=== PATIENT | female | born 1965 | race Two or more races ===

== ENCOUNTER 2018-05-14 12:08 | Emergency (ER) | payer MEDICAID ==
[~2018-05-14] VITALS: Ht 154.9 cm; Wt 90.7 kg
[2018-05-14] MEDS ORDERED: ASPirin 81 mg TAB PO ONE (13:15)
[2018-05-14 14:02] LABS: Urine WBC None Seen /hpf (0 - 5)
[2018-05-14 14:17] LABS: Urine Bacteria NONE SEEN /hpf (None Seen); Urine Blood Negative /uL (Negative); Urine Specific Gravity 1.005 (1.001-1.035)
[2018-05-14 14:48] LABS: Basophils # (auto) 0 uL; Basophils % (auto) 0.5 % (0.0-2.0); Eosinophils # (auto) 0.1 uL; Eosinophils % (auto) 1.3 % (0.0-7.0); Hematocrit 43.1 % (36.0-46.0); Hemoglobin 14.6 g/dL (12.2-16.2); Lymphocytes # (auto) 1.3 uL; Lymphocytes % (auto) 30.2 % (10.0-50.0); Mean Corpuscular Hemoglobin 30.8 pg (28.0-32.0); Mean Corpuscular Hgb Conc. 33.8 g/dL (32.0-36.0); Monocytes # (auto) 0.4 uL; Neutrophils # (auto) 2.6 uL; Nucleated Red Blood Cells % 0.2 %; Platelet Count (auto) 201 10^3/uL (140-450); Red Blood Cells 4.73 10^6/uL (4.0-5.20); Red Cell Distribution Width 13.3 % (11.8-14.3); White Blood Cell 4.5 10^3/uL (4.4-10.8)
[2018-05-14 15:04] LABS: Alanine Aminotransferase 26 U/L (13-56); Albumin 3.7 g/dL (3.4-5.0); Anion Gap 7 (5-15); Blood Urea Nitrogen 8 mg/dL (7-18); Calcium 8.6 mg/dL (8.5-10.1); Carbon Dioxide 25 mmol/L (21-32); Chloride 108 mmol/L (98-107); Glucose 86 mg/dL (74-106); INR 0.94 (0.9-1.15); Partial Thromboplastin Time 26.7 sec (23.78-33.04); Potassium 4.2 mmol/L (3.5-5.1); Prothrombin Time 10.1 sec (9.27-12.13); Sodium 140 mmol/L (136-145)
[2018-05-14 15:09] LABS: Alkaline Phosphatase 100 U/L (45-117); Aspartate Aminotransferase 33 U/L (15-37); BUN/Creatinine Ratio 15.4; Bilirubin, Total 0.4 mg/dL (0.2-1.0); GFR African American 159 mL/min; GFR Non-African American 131 mL/min; Total Protein 7.3 g/dL (6.4-8.2)
[2018-05-14 15:54] VITALS: BP 154/86
== END 2018-05-14 15:50 | disposition home or self-care (01) ==
LOC: ER 12:08
DX: R07.89 Other chest pain (principal); F41.9 Anxiety disorder, unspecified
CPT/HCPCS: 36415; 70450; 80053; 81001; 83880; 84484; 85025; 85610; 85730; 93005

== ENCOUNTER 2024-10-10 11:10 | Emergency (ER) | payer OTHER, MEDICAID ==
[~2024-10-10] VITALS: Ht 165.1 cm; Wt 72.7 kg
--- NOTE | 2024-10-10 11:26 | ECG ---
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
--- NOTE | 2024-10-10 11:37 | ED.PDOC ---
HPI Comments 59y F who presents to the ED via EMS for chief complaint of chest pain radiating to the neck. Per EMS, pt was at home and states since earlier this AM, pt has been having R sided neck pain with associated chest pain and associated shortness of breath and headache. Pt states the symptoms have been intermittent but states they have exacerbated today and pt called EMS. EMS arrived on scene and noted stable vitals and pt was brought to the ED. Pt in the ED, rates the pain 9/10, pulsating in nature, with no associated exacerbating or relieving factors. Pt denies back pain but states she is having pain in torso. Pt states she had seen PCP for appt and has network intelligence analyst appt sent up to follow up her concerns for possible AAA. Pt otherwise denies any other symptoms at this time. Chief Complaint: Chest Pain Time Seen by MD: 11:32 Reviewed Notes: Manager Of Applications Development Notes, Medications, Allergies Allergies: Coded Allergies: NO KNOWN ALLERGIES (Unverified , 05/14/18) Information Source: Patient, Emergency Med Personnel Mode of Arrival: EMS Brought in by: EMS Severity: Moderate Timing: Days Duration: Since onset Prehospital treatment: None Location: Chest (R) Radiation: Neck Quality: Other (pulsating) Onset: At Rest Cardiac Risk Factors: Hyperlipidemia, HTN PE Risk Factors: None History of: Similar pain in past Associated Signs and Symptoms: SOB, None (headache) Past Medical History PAST MEDICAL HISTORY: High Lipids, HTN Surgical History: , Hysterectomy HEALTH PROFESSIONAL History: No Pertinent HEALTH PROFESSIONAL History Family History Family History: Family hx of heart darrion Social History Smoker: Non-Smoker Alcohol: Denies ETOH Use Drugs: Denies Drug Use Lives In: Home Constitutional: denies: chills, diaphoresis, fatigue, fever, malaise, sweats, weakness, others EENTM: denies: blurred vision, double vision, ear bleeding, ear discharge, ear drainage, ear pain, ear ringing, eye pain, eye redness, hearing loss, mouth pain, mouth swelling, nasal discharge, nose bleeding, nose congestion, nose pain, photophobia, tearing, throat pain, throat swelling, voice changes, others Respiratory: denies: cough, hemoptysis, orthopnea, SOB at rest, shortness of breath, SOB with excertion, stridor, wheezing, others Cardiovascular: reports: chest pain; denies: dizzy spells, diaphoresis, Dyspnea on exertion, edema, irregular heart beat, left arm pain, lightheadedness, palpitations, PND, syncope, others Gastrointestinal: denies: abdomen distended, abdominal pain, blood streaked bowels, constipated, diarrhea, dysphagia, difficulty swallowing, hematemesis, melena, nausea, poor appetite, poor fluid intake, rectal bleeding, rectal pain, vomiting, others Genitourinary: denies: abnormal vagina bleeding, burning, dyspareunia, dysuria, flank pain, frequency, hematuria, incontinence, pain, , vagina discharge, urgency, others Neurological: denies: dizziness, fainting, headache, left sided numbness, left sided weakness, numbness, paresthesia, pre-existing deficit, right sided numbness, right sided weakness, seizure, speech problems, tingling, tremors, weakness, others Musculoskeletal: reports: neck pain; denies: back pain, gout, joint pain, joint swelling, muscle pain, muscle stiffness, others Integumetry: denies: bruises, change in color, change in hair/nails, dryness, laceration, lesions, lumps, rash, wounds, others Allergic/Immunocompromised: denies: Difficulty Healing, Frequent Infections, Hives, Itching, others Hematologic/Lymphatic: denies: anemia, blood clots, easy bleeding, easy bruising, swollen glands, others Endocrine: denies: excessive hunger, excessive sweating, excessive thirst, excessive urination, flushing, intolerance to cold, intolerance to heat, unexplained weight gain, unexplained weight loss, others Psychiatric: denies: anxiety, bipolar disorder, depression, hopeless, panic disorder, schizophrenia, sleepless, suicidal, others All Other Systems: Reviewed and Negative Physical Exam General Appearance: Mild Distress HEENT: Normal ENT Inspection, Pharynx Normal, TMs Normal Neck: Full Range of Motion, Non-Tender, Normal, Normal Inspection Respiratory: Chest Non-Tender, Lungs Clear, No Accessory Muscle Use, No Respiratory Distress, Normal Breath Sounds Cardiovascular: No Edema, No JVD, No Murmur, No Gallop, Normal Peripheral Pulses, Regular Rate/Rhythm Breast Exam: Deferred Gastrointestinal: No Organomegaly, Non Tender, No Pulsatile Mass, Normal Bowel Sounds, Soft Genitalia: Deferred Pelvic: Deferred Rectal: Deferred Extremities: No calf tenderness, Normal capillary refill, Normal inspection, Normal range of motion, Non-tender, No pedal edema Musculoskeletal : Apperance: Normal Neurologic: Alert, sheet rock taper helper II-XII nml as Tested, No Motor Deficits, Normal Affect, Normal Mood, No Sensory Deficits Cerebellar Function: Normal Reflexes: Normal Skin: Dry, Normal Color, Warm Lymphatic: No Adenopathy EKG EKG : Pulse Rate (adult): 65 [place]: Normal Cardiac Rhythm: NSR Block: None Hypertrophy: LAE, LVH ST: Normal Was a procedure done? Was a procedure done?: No CP Differential Dx Differential Diagnosis: Angina, Anxiety / Panic Attack, Atrial Dysrhythmia, Electrolyte Disorder, Heart Failure, VT, Pulmonary Embolus, PVC's Differential Diagnosis: HTN Essential, HTN Accelerated X-Ray, Labs, Meds, VS Vital Signs Date Time Temp Pulse Resp B/P (MAP) Pulse Ox O2 Delivery O2 Flow Rate FiO2 10/10/24 14:49 98.7 63 16 151/86 (107) 98 98.7 10/10/24 12:26 67 10/10/24 11:36 65 10/10/24 11:24 65 Lab Test 10/10/24 12:54 10/10/24 11:39 Range/Units Troponin I High Sensitivity 15 4 </=34 ng/L White Blood Count 5.8 4.4-10.8 10^3/uL Red Blood Count 4.62 4.0-5.20 10^6/uL Hemoglobin 14.4 12.2-16.2 g/dL Hematocrit 42.5 36.0-46.0 % Mean Corpuscular Volume 92.1 80.0-100.0 fL Mean Corpuscular Hemoglobin 31.3 28.0-32.0 pg Mean Corpuscular Hemoglobin Concent 33.9 32.0-36.0 g/dL Red Cell Distribution Width 12.9 11.8-14.3 % Platelet Count 185 140-450 10^3/uL Mean Platelet Volume 9.3 6.9-10.8 fL Neutrophils (%) (Auto) 71.9 37.0-80.0 % Lymphocytes (%) (Auto) 20.3 10.0-50.0 % Monocytes (%) (Auto) 6.2 0.0-12.0 % Eosinophils (%) (Auto) 1.4 0.0-7.0 % Basophils (%) (Auto) 0.2 0.0-2.0 % Neutrophils # (Auto) 4.2 1.6-8.6 10 ^3/uL Lymphocytes # (Auto) 1.2 0.4-5.4 10 ^3/uL Monocytes # (Auto) 0.4 0-1.3 10 ^3/uL Eosinophils # (Auto) 0.1 0-0.8 10 ^3/uL Basophils # (Auto) 0 0-0.2 10 ^3/uL Nucleated Red Blood Cells 0.1 % D-Dimer, Quantitative 0.54 H 0.0-0.49 mg/L FEU Sodium Level 145 136-145 mmol/L Potassium Level 4.1 3.5-5.1 mmol/L Chloride Level 109 H 98-107 mmol/L Carbon Dioxide Level 28 20-31 mmol/L Anion Gap 8 5-15 Blood Urea Nitrogen 8 L 9-23 mg/dL Creatinine 0.78 0.550-1.02 mg/dL Glomerular Filtration Rate Calc 87 >90 mL/min BUN/Creatinine Ratio 10.3 10.0-20.0 Serum Glucose 100 74-106 mg/dL Calcium Level 9.5 8.7-10.4 mg/dL B-Type Natriuretic Peptide 85.05 0-100 pg/mL XY CHEST TWO VIEWS ROUTINE IMPRESSION: No acute cardiopulmonary disease. IV Hep-Lock was established The troponin level is negative. The D-dimer is 0.54. We do not feel that this patient has a PE The patient's chemistry panel is within normal limits The CBC is within normal limits At this time, the patient will be transferred to [place]. We did speak with the [place] physician and the patient is also being worked up for some abnormality in her aorta. The patient is not complaining of any chest pain at this time so the patient is being transferred to their facility. The authorization number is [id number] At this time, the patient is being transferred We discussed the findings with the patient Images Reviewed?: Images reviewed and evaluated by me Time of 1ST Reevaluation: 14:54 Reevaluation 1ST: Unchanged Patient Education/Counseling: Diagnosis, Treatment, Prognosis Family Education/Counseling: No Family Present SEPSIS Sepsis Screen Physician Orders Troponin-I Hs (10/10/24 14:21) Electrocardigram (10/10/24 14:21) Heplock Iv (10/10/24 11:25) Extras Casting Director (10/10/24 11:25) Blood Pressure (10/10/24 11:25) Pulse Oximetry (10/10/24 11:25) Chest Two Views Routine (10/10/24 11:25) Imaging Transfer Request (10/10/24 14:20) Vital Signs Date Time Temp Pulse Resp B/P (MAP) Pulse Ox O2 Delivery O2 Flow Rate FiO2 10/10/24 14:49 98.7 63 16 151/86 (107) 98 98.7 10/10/24 12:26 67 10/10/24 11:36 65 10/10/24 11:24 65 Laboratory Tests Test 10/10/24 11:39 White Blood Count 5.8 10^3/uL (4.4-10.8) Departure 1 Departure Time of Disposition: 14:54 Impression: Primary Impression: Acute chest pain Disposition: 51 HOSPICE/MEDICAL FACILITY Condition: Fair Critical Care Note Critical Care Time?: Yes (35 min-critical care time only) Stability Stability form required: Yes Stable for transfer: Intended for transfer (Health plan request transfer), To designated facility Heart Score Heart Score: Heart Score Response (Comments) Value History Slightly Suspicious 0 EKG Normal 0 Age 45-64 1 Risk Factors 1 or 2 risk factors 1 Troponin Normal limit 0 Total 2 I personally scribed for MAXIMUS RODRIGUEZ MD ([email or web address]) on 10/10/24 at 11:36. Electronically submitted by Michele Marte ([email or web address]). I personally scribed for MAXIMUS RODRIGUEZ MD ([email or web address]) on 10/10/24 at 12:15. Electronically submitted by Michele Marte ([email or web address]). MAXIMUS RODRIGUEZ MD Oct 10, 2024 11:36
--- NOTE | 2024-10-10 12:08 | DVH ---
XY CHEST TWO VIEWS ROUTINE CLINICAL HISTORY: CP COMPARISON: None TECHNIQUE: Frontal and lateral view of the chest was obtained FINDINGS: Lines and Tubes: None Lungs: No focal consolidation. Pleura: No effusion. No pneumothorax. Cardiomediastinal contours: Unremarkable Bones: No acute osseous abnormality. IMPRESSION: No acute cardiopulmonary disease.
[2024-10-10 12:13] LABS: Hematocrit 42.5 % (36.0-46.0); Hemoglobin 14.4 g/dL (12.2-16.2); Mean Corpuscular Hemoglobin 31.3 pg (28.0-32.0); Mean Corpuscular Volume 92.1 fL (80.0-100.0); Nucleated Red Blood Cells % 0.1 %
[2024-10-10 12:18] LABS: Potassium 4.1 mmol/L (3.5-5.1); Sodium 145 mmol/L (136-145)
[2024-10-10 12:19] LABS: Anion Gap 8 (5-15); Calcium 9.5 mg/dL (8.7-10.4); Carbon Dioxide 28 mmol/L (20-31)
[2024-10-10 12:22] LABS: Chloride 109 mmol/L (98-107)
[2024-10-10 12:24] LABS: BUN/Creatinine Ratio 10.3 (10.0-20.0); Glucose 100 mg/dL (74-106)
[2024-10-10 12:25] LABS: Blood Urea Nitrogen 8 mg/dL (9-23)
--- NOTE | 2024-10-10 12:28 | ECG ---
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
[2024-10-10 16:38] VITALS: BP 152/75; PULSE 99; RESP 16; TEMP 97.7; O2SAT 97
== END 2024-10-10 14:44 | disposition short-term general hospital (02) ==
LOC: ER 11:10 → EDBD 11:10 → ER 14:44
DX: R07.89 Other chest pain (principal); M54.2 Cervicalgia; I10 Essential (primary) hypertension; E78.5 Hyperlipidemia, unspecified; Z90.710 Acquired absence of both cervix and uterus; Z98.890 Other specified postprocedural states
CPT/HCPCS: 36415; 71046; 80048; 83880; 84484; 85025; 85379; 93005